=== PATIENT | female | born 1950 | race Two or more races ===

== ENCOUNTER 2018-01-08 06:12 | Emergency (ER) | payer OTHER ==
[~2018-01-08] VITALS: Ht 152.4 cm; Wt 62.6 kg
[~2018-01-08 06:12] MED LIST: ASA81 MG; GILTUSS PO; LEXAPRO5 MG; PROVENTIL HFA6.7 GM IH; SIMVASTATIN10 MG; SYMBICORT 16010.2 GM IH; SYNTHROID50 MCG
[2018-01-08] MEDS ORDERED: MEDROLPACK PO (11:01)
== END 2018-01-08 11:55 | disposition home or self-care (01) ==
LOC: ER 06:12
DX: J45.998 Other asthma (principal)

== ENCOUNTER 2018-01-10 13:56 | Emergency (ER) | payer OTHER ==
[~2018-01-10] VITALS: Ht 152.4 cm; Wt 61.2 kg
[~2018-01-10 13:56] MED LIST changes: +MEDROLPACK PO
== END 2018-01-10 20:40 | disposition left against medical advice (07) ==
LOC: ER 13:56
DX: Z53.20 Procedure and treatment not carried out because of patient's decision for unspecified reasons (principal)